=== PATIENT | male | born 1995 | race Caucasian/White ===

== ENCOUNTER 2019-08-17 11:06 | Emergency (ER) | payer OTHER ==
[2019-08-17 11:42] VITALS: BP 134/82
[2019-08-17] MEDS ORDERED: Lidocaine 2% PF * 5 ML VIAL INJ ONE (12:18)
--- NOTE | 2019-08-17 13:05 | UC ---
Laceration HPI - HPI Summary HPI Summary: laceration right hand x 1 hr ago cut his right hand with and sharp knife at work knife slipped as he was butting boxes about 2 cm laceration of the hand / wrist moving all his fingers - History Of Current Complaint Chief Complaint: UCLaceration Stated Complaint: CUT HAND AT WORK Time Seen by Provider: 08/17/19 12:11 Hx Obtained From: Patient Laceration Location: Hand - right Mechanism Of Injury: Sharp Trauma Onset/Duration: Sudden Onset, Lasting Hours - 1 Severity: Moderate Pain Intensity: 7 Aggravating Factors: Movement Hands: 1 - 2 cm laceration deep Related History: Occupational Injury - Allergies/Home Medications Allergies/Adverse Reactions: Allergies Allergy/AdvReac Type Severity Reaction Status Date / Time Penicillins Allergy Unknown Verified 08/17/19 11:33 Reaction Details Home Medications: Home Medications NK [No Home Medications Reported] 08/17/19 [History Confirmed 08/17/19] PMH/Surg Hx/FS Hx/Imm Hx Previously Healthy: Yes - Surgical History Surgical History: None - Family History Known Family History: Negative: Blood Disorder - Social History Alcohol Use: Rare Substance Use Type: None Smoking Status (MU): Never Smoked Tobacco Review of Systems All Other Systems Reviewed And Are Negative: Yes Is Patient Immunocompromised?: No Physical Exam Triage Information Reviewed: Yes Appearance: Well-Appearing, No Pain Distress, Well-Nourished Vital Signs: Initial Vital Signs Temp 98.3 F 08/17/19 11:34 Pulse 69 08/17/19 11:34 Resp 16 08/17/19 11:34 BP 134/82 08/17/19 11:34 Pulse Ox 98 08/17/19 11:34 Vital Signs Reviewed: Yes Eye Exam: Normal Eyes: Positive: Conjunctiva Clear ENT: Positive: Normal ENT inspection, Hearing grossly normal, Pharynx normal Neck exam: Normal Neck: Positive: Supple Respiratory: Positive: Chest non-tender, Lungs clear, Normal breath sounds Cardiovascular: Positive: RRR, No Murmur, Pulses Normal Skin: Positive: Other - 2 cm laceration of the right hand at the junction of right hand/ wrist, + deep / bleeding Laceration Repair - Laceration Repair 1 Description: Linear Laceration Size After Repair: Length (cm) - 2, Width (mm) - 3, Depth (mm) - 3 Modified For Repair: No Type Injection: Local Anesthesia Used: 2.0% Lido - 7 cc Cleansing Completed Via Routine Prep: Yes Irrigation With Pressure Irrigation Device: Yes Closure Material: Sutures - x 7 Closure Method: Single Layer Suture Of: Skin Suture Type: Nylon - 5.0 nylon x 7 Laceration Course/Dx - Diagnosis Provider Diagnosis: Laceration of right hand Discharge ED - Sign-Out/Discharge Documenting (check all that apply): Patient Departure All imaging exams completed and their final reports reviewed: No Studies - Discharge Plan Condition: Stable Disposition: HOME Patient Education Materials: Laceration (ED) Referrals: Yuniel Kaminski MD [Primary Care Provider] - 08/27/19 - Billing Disposition and Condition Condition: STABLE Disposition: Home
== END 2019-08-17 13:12 | disposition home or self-care (01) ==
LOC: UCCORT 11:06
DX: S61.411A Laceration without foreign body of right hand, initial encounter (principal); W26.0XXA Contact with knife, initial encounter; Y92.9 Unspecified place or not applicable; Z88.0 Allergy status to penicillin
CPT/HCPCS: 12001; 99201; G0463

== ENCOUNTER 2019-08-27 12:41 | Emergency (ER) | payer SELFPAY ==
[2019-08-27 13:12] VITALS: BP 120/74
--- NOTE | 2019-08-27 13:23 | UC ---
HPI Wound/Suture Re-check - HPI Summary HPI Summary: Pt presents with request to have sutures removed on right base of thumb that were placed here 10 days prior. - History Of Current Complaint Chief Complaint: UCSkin Stated Complaint: STITCHES REMOVED Time Seen by Provider: 08/27/19 13:14 Hx Obtained From: Patient Onset/Duration: Sudden Onset Severity: Mild Pain Intensity: 0 - Allergies/Home Medications Allergies/Adverse Reactions: Allergies Allergy/AdvReac Type Severity Reaction Status Date / Time Penicillins Allergy Unknown Verified 08/27/19 13:06 Reaction Details Home Medications: Home Medications NK [No Home Medications Reported] 08/17/19 [History Confirmed 08/27/19] PMH/Surg Hx/FS Hx/Imm Hx Previously Healthy: Yes - Surgical History Surgical History: None - Family History Known Family History: Positive: Cardiac Disease Negative: Blood Disorder - Social History Occupation: Employed Full-time Lives: With Family Alcohol Use: Weekly Alcohol Amount: 3 Substance Use Type: None Smoking Status (MU): Never Smoked Tobacco Have You Smoked in the Last Year: No - Immunization History Most Recent Tetanus Shot: 2013 Vaccination Up to Date: Yes Review of Systems All Other Systems Reviewed And Are Negative: Yes Constitutional: Positive: Negative Skin: Positive: Other - sutures intact and no tenderness, purulent discharge, fever, chills, or red streaking from suture site. Eyes: Positive: Negative ENT: Positive: Negative Respiratory: Positive: Negative Cardiovascular: Positive: Negative Gastrointestinal: Positive: Negative Genitourinary: Positive: Negative Motor: Positive: Negative Neurovascular: Positive: Negative Musculoskeletal: Positive: Negative Neurological/Mental Status: Positive: Negative Psychological: Positive: Negative Is Patient Immunocompromised?: No Physical Exam Triage Information Reviewed: Yes Appearance: Well-Appearing Vital Signs: Initial Vital Signs Temp 99.1 F 08/27/19 13:06 Pulse 72 08/27/19 13:06 Resp 18 08/27/19 13:06 BP 120/74 08/27/19 13:06 Pulse Ox 99 08/27/19 13:06 Vital Signs Reviewed: Yes Eye Exam: Normal ENT: Positive: Hearing grossly normal Respiratory: Positive: No respiratory distress Musculoskeletal Exam: Normal Musculoskeletal: Positive: Strength Intact, ROM Intact Neurological Exam: Normal Psychological Exam: Normal Skin Exam: Other - 7 sutures intact and removed. no complications with removal Course/Dx - Differential Dx - Laceration/Wound Differential Diagnoses: Dehiscence, Healing Wound, Suture Removal - Diagnosis Provider Diagnosis: Visit for suture removal Discharge ED - Sign-Out/Discharge Documenting (check all that apply): Patient Departure All imaging exams completed and their final reports reviewed: No Studies - Discharge Plan Condition: Stable Disposition: HOME Patient Education Materials: Stitches Removal (ED) Referrals: Yuniel Kaminski MD [Primary Care Provider] - If Needed - Billing Disposition and Condition Condition: STABLE Disposition: Home
== END 2019-08-27 13:28 | disposition home or self-care (01) ==
LOC: UCCORT 12:41
DX: S61.011D Laceration without foreign body of right thumb without damage to nail, subsequent encounter (principal); W45.8XXD Other foreign body or object entering through skin, subsequent encounter; Z88.0 Allergy status to penicillin